=== PATIENT | female | born 1945 | race Caucasian/White ===

== ENCOUNTER → 2016-12-25 | Outpatient (REF) ==
[~2016-12-25] MED LIST: ALPRAZOLAM; AMITRIPTYLINE H25 M1 PO; ATIVAN 1MG T1 MG/TAB PO; BUFFERED ASPIRIN; CALCIUM WITH VIT D PO; ESKALITH; FLUOXETINE; INDERAL 10MG10 MG PO; LIDOCAINE/PRILO1 CRE TP; LYRICA 50MG CAP50 MG PO; N ACETYL PO; NEURONTIN300 MG/CAP PO; PAIN RELIEF AD200 MG PO; RISPERDAL 1M1 MG/TAB PO; SYNTHROID0.1 MG/TAB PO; WELLBUTRIN XL150 MG PO; ZOCOR 20MG20 MG PO; [UNRECOGNIZED DRUG - OTHER]; [UNRECOGNIZED DRUG - OTHER] PO; vitamin D3 PO
== END ==
LOC: ZLAB.WCH 10:46
DX: Z01.89 Encounter for other specified special examinations (principal)

== ENCOUNTER → 2017-01-08 | Outpatient (REF) | LOC: ZLAB.WCH 15:53 | DX: Z01.89 Encounter for other specified special examinations (principal) ==

== ENCOUNTER → 2017-09-12 | Outpatient (CLI) | payer MEDICARE, BC ==
[2017-09-12 16:55] LABS: BASO % 0.6 % (0.0-2.0); EOS # 0.2 (0.0-0.7); EOS % 3.5 % (0-4.0); HEMATOCRIT 40.9 % (37.0-47.0); HEMOGLOBIN 12.3 g/dl (12.5-16.0); LYMPH # 1.8 (1.2-3.4); LYMPH % 27.1 % (20.0-51.0); MEAN CELL VOLUME 95 fl (80.0-100.0); MEAN CORPUSCULAR HEMOGLOBIN 29 pg (27.0-31.0); MEAN CORPUSCULAR HGB CONC 30 g/dl (33.0-37.0); MEAN PLATELET VOLUME 10.2 fl (7.4-10.4); MONO # 0.5 (0.1-0.6); MONO % 7.6 % (1.7-9.3); PLATELET COUNT 274 K/mm3 (130-400); RED BLOOD COUNT 4.32 M/mm3 (4.10-5.30); WHITE BLOOD COUNT 6.6 K/mm3 (4.8-10.8)
[2017-09-12 17:03] LABS: ADJUSTED CALCIUM 9.4 mg/dL (8.4-10.2); ALBUMIN 4.2 gm/dL (3.5-5.0); BILIRUBIN,TOTAL 0.6 mg/dL (0.0-1.0); C-REACTIVE PROTEIN 0.6 mg/dL (0.0-0.9); CALCIUM 9.6 mg/dL (8.4-10.2); CREATININE, serum 1.04 mg/dL (0.52-1.25); POTASSIUM 4.2 mmol/L (3.4-5.0); TOTAL PROTEIN 6.7 gm/dL (6.4-8.2)
[2017-09-12 17:22] LABS: ERYTHROCYTE SEDIMENTATION RATE 2 mm/hr (0-30)
[2017-09-12 18:37] LABS: LITHIUM 0.9 mmol/L (0.6-1.2)
== END ==
LOC: COL.LAB 11:16
PROVIDERS: Family Medicine
DX: M79.1 Myalgia (principal); R53.83 Other fatigue; Z79.899 Other long term (current) drug therapy

== ENCOUNTER → 2017-10-04 | Outpatient (CLI) | payer MEDICARE, BC | LOC: BHSO 10:52 | DX: F43.9 Reaction to severe stress, unspecified (principal) | CPT/HCPCS: G0463 ==

== ENCOUNTER → 2017-11-26 | Outpatient (CLI) | payer MEDICARE, BC | LOC: COL.RAD 10:00 | DX: R13.10 Dysphagia, unspecified (principal) ==

== ENCOUNTER → 2017-11-30 | Outpatient (CLI) | payer MEDICARE, BC | LOC: BHSO 11:13 | DX: F31.32 Bipolar disorder, current episode depressed, moderate (principal) | CPT/HCPCS: G0463 ==

== ENCOUNTER → 2017-12-04 | Outpatient (REF) ==
[2017-12-04 19:07] LABS: LITHIUM 0.9 mmol/L (0.6-1.2)
[2017-12-04 19:31] LABS: THYROID STIMULATING HORMONE 3.76 uIU/mL (0.465-4.680)
== END ==
LOC: ZLAB.WCH 18:45
PROVIDERS: Psychiatry & Neurology Psychiatry
DX: Z01.89 Encounter for other specified special examinations (principal)

== ENCOUNTER → 2017-12-26 | Outpatient (CLI) | payer MEDICARE, BC | LOC: COL.RAD 10:50 | DX: R13.10 Dysphagia, unspecified (principal) | CPT/HCPCS: G8996-GN; G8997-GN; G8998-GN ==

== ENCOUNTER → 2018-01-02 | Outpatient (REF) ==
[2018-01-02 17:27] LABS: LITHIUM 1.1 mmol/L (0.6-1.2)
[2018-01-02 18:16] LABS: THYROID STIMULATING HORMONE 3.12 uIU/mL (0.465-4.680)
== END ==
LOC: ZLAB.WCH 15:57
DX: Z01.89 Encounter for other specified special examinations (principal)

== ENCOUNTER → 2018-01-23 | Outpatient (CLI) | payer MEDICARE, BC ==
[2018-01-23 08:40] LABS: CALCIUM 9.4 mg/dL (8.4-10.2); CREATININE, serum 1.14 mg/dL (0.52-1.25); POTASSIUM 4.3 mmol/L (3.4-5.0)
== END ==
LOC: COL.RAD 01-17 08:30
PROVIDERS: Family Medicine
DX: R91.1 Solitary pulmonary nodule (principal); R91.8 Other nonspecific abnormal finding of lung field
CPT/HCPCS: Q9967

== ENCOUNTER 2018-02-11 13:15 | Outpatient (RCR) | payer MEDICARE, BC | END 2018-03-03 | disposition home or self-care (01) | LOC: WSST | DX: R13.10 Dysphagia, unspecified (principal) | CPT/HCPCS: G8996-GN; G8997-GN ==

== ENCOUNTER → 2018-02-11 | Outpatient (CLI) | payer MEDICARE, BC | LOC: BHSO 10:59 | DX: F31.31 Bipolar disorder, current episode depressed, mild (principal) | CPT/HCPCS: G0463 ==

== ENCOUNTER 2018-03-27 09:30 | Outpatient (RCR) | payer MEDICARE, BC | END 2018-06-05 | disposition still patient (30) | LOC: WSST | DX: R13.10 Dysphagia, unspecified (principal) | CPT/HCPCS: G8996-GN; G8997-GN ==

== ENCOUNTER → 2018-03-28 | Outpatient (CLI) | payer MEDICARE, BC | LOC: BHSO 11:32 | DX: F31.31 Bipolar disorder, current episode depressed, mild (principal) | CPT/HCPCS: G0463 ==

== ENCOUNTER → 2018-04-22 | Outpatient (CLI) | payer MEDICARE, BC | LOC: BHSO 10:09 | DX: F31.31 Bipolar disorder, current episode depressed, mild (principal) ==

== ENCOUNTER → 2018-04-30 | Outpatient (CLI) | payer MEDICARE, BC ==
[2018-04-30 22:10] LABS: HEPATITIS B SURFACE ANTIBODY 12.1 (())
== END ==
LOC: COL.LAB 09:44
PROVIDERS: Family Medicine
DX: Z01.84 Encounter for antibody response examination (principal)

== ENCOUNTER → 2018-07-01 | Outpatient (CLI) | payer MEDICARE, BC | LOC: BHSO 09:08 | DX: F31.76 Bipolar disorder, in full remission, most recent episode depressed (principal) | CPT/HCPCS: G0463 ==

== ENCOUNTER → 2018-07-03 | Outpatient (REF) | LOC: ZLAB.WCH 15:59 | DX: Z01.89 Encounter for other specified special examinations (principal) ==

== ENCOUNTER → 2018-07-10 | Outpatient (CLI) | payer MEDICARE, BC ==
[2018-07-10 16:13] LABS: C-REACTIVE PROTEIN 0.7 mg/dL (0.0-0.9)
[2018-07-10 16:14] LABS: CREATINE KINASE < 20 U/L (30-135)
== END ==
LOC: COL.LAB 14:29
PROVIDERS: Family Medicine
DX: R29.898 Other symptoms and signs involving the musculoskeletal system (principal)

== ENCOUNTER → 2018-08-09 | Outpatient (CLI) | payer MEDICARE, BC | LOC: COL.CARD 10:00 | DX: R00.1 Bradycardia, unspecified (principal); R53.83 Other fatigue ==

== ENCOUNTER 2018-08-12 09:00 | Outpatient (RCR) | payer MEDICARE, BC | END 2018-11-03 | disposition home or self-care (01) | LOC: WSST | DX: R13.10 Dysphagia, unspecified (principal) | CPT/HCPCS: G8996-GN; G8997-GN ==

== ENCOUNTER → 2018-09-18 | Outpatient (CLI) | payer MEDICARE, BC | LOC: BHSO 10:44 | DX: F31.76 Bipolar disorder, in full remission, most recent episode depressed (principal) | CPT/HCPCS: G0463 ==

== ENCOUNTER → 2019-02-04 | Outpatient (REF) | LOC: ZLAB.WCH 17:38 | DX: Z01.89 Encounter for other specified special examinations (principal) ==

== ENCOUNTER → 2022-03-29 | Outpatient (CLI) | payer MEDICARE, BC | LOC: COL.VAS 13:15 | DX: I35.1 Nonrheumatic aortic (valve) insufficiency (principal); J98.4 Other disorders of lung ==